=== PATIENT | male | born 1990 | race African-American/Black ===

== ENCOUNTER 2016-07-09 14:22 | Emergency (ER) | payer MEDICAID ==
[~2016-07-09] VITALS: Ht 185.4 cm; Wt 117.9 kg
[2016-07-09] MEDS ORDERED: SODIUM CHLORIDE 0.9% 1,000 ML IV ONE (14:27)
[2016-07-09] MEDS ORDERED: LORazepam 2MG/ML-1ML VIAL IV ONE (14:30)
[2016-07-09 14:50] LABS: Basophils # (auto) 0 uL; Basophils % (auto) 0.4 % (0.0-2.0); DEFINITIVE VIEW TRANSMISSION; Eosinophils # (auto) 0.1 uL; Hematocrit 43.4 % (41.0-53.0); Hemoglobin 13.8 g/dL (13.5-17.5); Lymphocytes % (auto) 50.4 % (10.0-50.0); Mean Corpuscular Hemoglobin 23.4 pg (28.0-32.0); Mean Corpuscular Hgb Conc. 31.9 g/dL (32.0-36.0); Mean Corpuscular Volume 73.3 fL (80.0-100.0); Mean Platelet Volume 8.1 fL (7.4-10.4); Monocytes # (auto) 0.6 uL; Monocytes % (auto) 7.3 % (0.0-12.0); Neutrophils # (auto) 3.2 uL; Neutrophils % (auto) 40.9 % (37.0-80.0); Platelet Count (auto) 311 10^3/uL (140-450); Red Cell Distribution Width 15.2 % (11.6-16.0); White Blood Cell 7.8 10^3/uL (4.4-10.8)
[2016-07-09 15:06] LABS: Partial Thromboplastin Time 24.2 sec (22.64-33.71)
[2016-07-09 15:07] LABS: INR 1.18 (0.9-1.15); Prothrombin Time 12.9 sec (9.37-12.3)
[2016-07-09 15:18] LABS: Alkaline Phosphatase 84 U/L (45-117); Anion Gap 14 (5-15); Aspartate Aminotransferase 23 U/L (15-37); BUN/Creatinine Ratio 10.1; Bilirubin, Total 0.8 mg/dL (0.2-1.0); Blood Urea Nitrogen 11 mg/dL (7-18); Calcium 9.2 mg/dL (8.5-10.1); Carbon Dioxide 20 mmol/L (21-32); Chloride 107 mmol/L (98-107); GFR African American 107 mL/min; GFR Non-African American 88 mL/min; Glucose 111 mg/dL (74-106); Potassium 3.5 mmol/L (3.5-5.1); Sodium 141 mmol/L (136-145); Total Protein 8.4 g/dL (6.4-8.2)
[2016-07-09 16:00] VITALS: BP 148/76
== END 2016-07-09 17:59 | disposition home or self-care (01) ==
LOC: ER 14:22 → EDBD 14:22 → ER 17:59
DX: R56.9 Unspecified convulsions (principal)
CPT/HCPCS: 36415; 70450; 71010; 80053; 84484; 85025; 85610; 85730; 96361; 96374; 99285; J2060; J7030